=== PATIENT | male | born 1960 | race Caucasian/White ===

== ENCOUNTER → 2020-12-28 | Outpatient (CLI) | payer MEDICARE, OTHER ==
[~2020-12-28] MED LIST: ARMO250T4 PO; ASCO500C PO; BUPR150T11 PO; CHOL100013 PO; CYCL10TA2 PO; HYDR-2765 PO; IBUP-1007 PO; LORC10TA PO; LOSA1TAB22 PO; PHEN37.598 PO; TEST75GE TP
--- NOTE | 2020-12-28 15:38 | RAD ---
Study: MRI of the right hip without contrast INDICATION: Thigh sprain. Hip pain. COMPARISON: None. TECHNIQUE: Multiplanar MR imaging of the right hip performed without the use of intravenous or intra- articular contrast. FINDINGS: Degraded exam on account of patient body habitus with a decreased [id number] ratio. Bones/hip: Marrow edema and cystic change mainly at the superior acetabulum. Small superolateral femo ral head/neck junction osteophytes. Labrum/cartilage: Difficult to closely evaluate but there is degenerative tearing of the labrum at le ast from anterior/superior to superior. 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 Ligamentum teres: Appears to be intact but with some degenerative signal heterogeneity approaching th e fovea capitis. Greater trochanteric bursa: Within normal limits. Musculotendinous: No advanced tendinosis or high-grade/full-thickness tear of the common hamstrings, gluteus medius, gluteus minimus, iliopsoas or rectus femoris. Within normal limits ischiofemoral spac e. Mild scattered muscular fatty infiltration. Miscellaneous: No inguinal adenopathy. Unremarkable sciatic nerve bundle. Small hip joint effusion wi th mild synovitis. The localizer images reveal surgical changes at the L4-L5 levels. IMPRESSION: 1. Degenerative tearing of the acetabular labrum at least from anterior/superior to superior. Corres pondingly, high-grade/full-thickness chondrosis involving the acetabulum more so than femoral head an d subchondral cystic change/edema at the superior acetabulum. Collectively arthrosis is moderate in s everity. 2. No acute musculotendinous abnormality about the right hip. 3. Small hip joint effusion with mild synovitis. Electronically signed by: YULI TSE MD (12/28/2020 3:36 PM) [id number]
== END ==
LOC: MRI 13:44
PROVIDERS: ATTEND Preventive Medicine Occupational Medicine
DX: S73 Dislocation and sprain of joint and ligaments of hip (principal); M25.451 Effusion, right hip; M65.88 Other synovitis and tenosynovitis, other site; X58.XXXS Exposure to other specified factors, sequela
CPT/HCPCS: 73721